=== PATIENT | female | born 1955 | race Caucasian/White ===

== ENCOUNTER 2018-12-31 17:03 | Emergency (ER) | payer OTHER, BC ==
[2018-12-31] MEDS: HYDROCODONE/APAP (5/325) TAB PO (18:31)
[2018-12-31] MEDS: DEXAMETHASONE 10 MG/ML 1 ML INJ IM (18:32)
== END 2018-12-31 19:40 | disposition home or self-care (01) ==
LOC: FTE 17:03
DX: M75.91 Shoulder lesion, unspecified, right shoulder (principal); Z96.652 Presence of left artificial knee joint
CPT/HCPCS: 73030; 73030-RT; 96372; 99284-25